=== PATIENT | male | born 1995 | race Caucasian/White ===

== ENCOUNTER 2019-09-19 12:36 | Emergency (ER) | payer OTHER ==
[~2019-09-19] VITALS: Ht 165.1 cm; Wt 105.7 kg
[~2019-09-19 12:36] MED LIST: AZIT250 PO; PSYL5.85P PO; [UNRECOGNIZED DRUG - OTHER]
[2019-09-19] MEDS ORDERED: Norco 5-325 Ta1 EACH PO (13:56)
[2019-09-19] MEDS ORDERED: PRED10 PO (13:56)
[2019-09-19] MEDS ORDERED: IBUP800 PO (13:56)
== END 2019-09-19 14:25 | disposition home or self-care (01) ==
LOC: ER 12:36
DX: M54.18 Radiculopathy, sacral and sacrococcygeal region (principal); M25.552 Pain in left hip
CPT/HCPCS: 72100; 73502; 99284-25; A9270-GY; J1885

== ENCOUNTER 2020-01-12 07:18 | Emergency (ER) | payer SELFPAY ==
[~2020-01-12] VITALS: Ht 177.8 cm; Wt 108.9 kg
[~2020-01-12 07:18] MED LIST changes: +IBUP800 PO; +Norco 5-325 Ta1 EACH PO; +PRED10 PO
[2020-01-12 08:07] LABS: Source, Urine Voided
[2020-01-12 08:09] LABS: Bilirubin, Urine Neg (Neg); Blood, Urine Neg (Neg); Glucose Qualitative, Urine Neg (Neg); Ketones, Urine Neg (Neg); Leukocyte Esterase, Urine Neg (Neg); Nitrite, Urine Neg (Neg); Protein, Urine Neg (Neg); Urobilinogen, Urine NORM (Normal)
[2020-01-12 08:26] LABS: Appearance, Urine Clear (Clear); Color, Urine Yellow (P-Yellow)
[2020-01-12] MEDS ORDERED: Flagyl500 MG PO (09:12)
[2020-01-12] MEDS ORDERED: Cipro500 MG PO (09:12)
== END 2020-01-12 09:23 | disposition home or self-care (01) ==
LOC: ER 07:18
PROVIDERS: Emergency Medicine
DX: A09 Infectious gastroenteritis and colitis, unspecified (principal)
CPT/HCPCS: 74176; 81003; 96374; 99284-25

== ENCOUNTER 2020-09-27 05:05 | Emergency (ER) | payer OTHER ==
[~2020-09-27 05:05] MED LIST changes: +Cipro500 MG PO; +Flagyl500 MG PO
[2020-09-27] MEDS ORDERED: IBUP600 PO (08:55)
[2020-09-27] MEDS ORDERED: CYCL10 PO (08:55)
== END 2020-09-27 05:20 | disposition left against medical advice (07) ==
LOC: ER 05:05
DX: Z53.21 Procedure and treatment not carried out due to patient leaving prior to being seen by health care provider (principal)

== ENCOUNTER 2020-09-27 07:49 | Emergency (ER) | payer OTHER ==
[~2020-09-27] VITALS: Ht 167.6 cm; Wt 99.8 kg
[2020-09-27] MEDS ORDERED: IBUP600 PO (08:55)
[2020-09-27] MEDS ORDERED: CYCL10 PO (08:55)
== END 2020-09-27 09:39 | disposition home or self-care (01) ==
LOC: ER 07:49
DX: S16.1XXA Strain of muscle, fascia and tendon at neck level, initial encounter (principal); X50.1XXA Overexertion from prolonged static or awkward postures, initial encounter
CPT/HCPCS: 96372; 99283-25; A9270; J1100; J1885

== ENCOUNTER 2021-01-22 21:56 | Emergency (ER) | payer OTHER ==
[~2021-01-22] VITALS: Ht 167.6 cm; Wt 99.8 kg
[~2021-01-22 21:56] MED LIST changes: +CYCL10 PO; +IBUP600 PO
== END 2021-01-22 23:43 | disposition home or self-care (01) ==
LOC: ER 21:56
DX: S80.852A Superficial foreign body, left lower leg, initial encounter (principal); Z23 Encounter for immunization; W45.8XXA Other foreign body or object entering through skin, initial encounter
CPT/HCPCS: 73590; 90471; 90714; 99283-25

== ENCOUNTER → 2021-04-02 | Outpatient (CLI) | payer OTHER ==
[2021-04-02 11:01] LABS: BASOPHILS ABSOLUTE AUTO 0.03 K/mm3 (0.00-0.23); BASOPHILS PERCENT AUTO 0 % (0-2); EOSINOPHILS PERCENT AUTO 1 % (0-6); Hematocrit 42.8 % (37.0-53.0); Hemoglobin 14.8 g/dL (13.5-17.5); IMMATURE GRAN ABSOLUTE AUTO 0.03 K/mm3 (0.00-0.10); IMMATURE GRAN PERCENT AUTO 0 % (0-1); LYMPHOCYTES ABSOLUTE AUTO 2.55 K/mm3 (0.84-5.20); LYMPHOCYTES PERCENT AUTO 32 % (21-46); MONOCYTES ABSOLUTE AUTO 0.51 K/mm3 (0.16-1.47); MONOCYTES PERCENT AUTO 6 % (4-13); Mean Corpuscular HGB 30.6 pg (26.0-34.0); Mean Corpuscular HGB Conc 34.6 g/dL (31.5-36.5); Mean Corpuscular Volume 88 fL (80-100); Mean Platelet Volume 8.7 fL (9.1-12.4); NEUTROPHILS ABSOLUTE AUTO 4.77 K/mm3 (1.96-9.15); NEUTROPHILS PERCENT AUTO 60 % (41-73); Platelet Count 229 K/mm3 (150-400); RDW Coefficient Variation 13.2 % (11.7-14.2); RDW Standard Deviation 42.7 fL (35.1-46.3); Red Blood Cell Count 4.84 M/mm3 (4.30-5.90); White Blood Cell Count 7.99 K/mm3 (4.00-11.30)
[2021-04-02 11:12] LABS: Alanine Aminotransfer (ALT/SGP 26 U/L (12-78); Albumin, Blood 4.2 g/dL (3.4-5.0); Albumin/Globulin Ratio 1.4 (0.8-1.8); Alk Phos 52 U/L (40-126); Anion Gap 10 mmol/L (6-16); Aspartate Aminotrans (AST/SGOT 15 U/L (12-37); Bilirubin, Total 0.7 mg/dL (0.1-1.0); Blood Urea Nitrogen 18 mg/dL (8-24); Bun/Creatinine Ratio 15.8 (12.0-20.0); CO2, Blood 28 mmol/L (21-32); Calcium, Blood 8.5 mg/dL (8.5-10.1); Chloride, Blood 103 mmol/L (98-108); Creatinine, Blood 1.14 mg/dL (0.60-1.20); Globulin, Blood 3.1 g/dL (2.2-4.0); Glomerular Filtration Rate >60 (60-); Glucose, Blood 92 mg/dL (70-99); Sodium, Blood 141 mmol/L (136-145); Total Protein, Blood 7.3 g/dL (6.4-8.2)
[2021-04-02 11:16] LABS: Troponin I <0.017 ng/mL (0.000-0.040)
== END | disposition home or self-care (01) ==
LOC: LAB SHORT 10:53
PROVIDERS: Physician Assistant
DX: R07.9 Chest pain, unspecified (principal)
CPT/HCPCS: 80053; 84484; 85025; 85379